=== PATIENT | male | born 1980 | race Caucasian/White ===

== ENCOUNTER 2021-05-25 10:39 | Emergency (ER) | payer OTHER ==
[2021-05-25 10:43] VITALS: BP 143/67; PULSE 64; RESP 18; TEMP 98.3
[2021-05-25] MEDS ORDERED: BACITRACIN OINT 1 EACH PACKET TOPICAL ONE (11:00)
[2021-05-25] MEDS ORDERED: LIDOCAINE 1% INJ 10MG/ML (20 ML MDV) SQ ONE (11:00)
--- NOTE | 2021-05-25 11:52 | ED ---
Wound/Laceration HPI - General Chief Complaint: Wound/Laceration Stated Complaint: hand lac Time Seen by Provider: 05/25/21 10:46 Source: patient Mode of arrival: ambulatory Limitations: no limitations - History of Present Illness Initial Comments: Patient is a 40-year-old male presenting to emergency Department with complaints of laceration to his left hand. Patient states about an hour prior to arrival, was getting out of the shower, and his hand accidentally hit the side of his doorknob which is broken. He has a laceration on the dorsal aspect of his left hand over the third MCP joint. He is not on blood thinners, his tetanus vaccine is up-to-date. Bleeding is controlled with a bandage at this time. He has no further complaints. - Related Data Allergies Allergy/AdvReac Type Severity Reaction Status Date / Time Penicillins Allergy Rash/Hives Verified 05/25/21 10:43 Review of Systems ROS Statement: Those systems with pertinent positive or pertinent negative responses have been documented in the HPI. ROS Other: All systems not noted in ROS Statement are negative. Past Medical History Past Medical History: No Reported History History of Any Multi-Drug Resistant Organisms: None Reported Past Surgical History: Orthopedic Surgery Past Psychological History: No Psychological Hx Reported Smoking Status: Never smoker Past Alcohol Use History: Occasional Past Drug Use History: None Reported General Exam - General Exam Comments Initial Comments: GENERAL: Patient is well-developed and well-nourished. Patient is nontoxic and in no acute distress. HEAD: Atraumatic, normocephalic. EYES: Pupils equal round and reactive to light, extraocular movements intact, sclera anicteric, conjunctiva are normal. Eyelids were unremarkable. LUNGS: Unlabored respirations. Breath sounds clear to auscultation bilaterally and equal. No wheezes rales or rhonchi. HEART: Regular rate and rhythm without murmurs, rubs or gallops. MUSCULOSKELETAL: Does have partial extension of the third finger however with resistance , it is painful and decreased strength as a compared to his other fingers. No clubbing or cyanosis. NEUROLOGICAL: Patient is alert and oriented x 3. SKIN: Warm, Dry, normal turgor, no rashes. Patient has a 1 cm laceration dorsal aspect of left hand near the third MCP joint. Leading is controlled. Limitations: no limitations Course Vital Signs 05/25/21 10:40 Temperature 98.3 F Pulse Rate 64 Respiratory 18 Rate Blood Pressure 143/67 O2 Sat by Pulse 99 Oximetry Procedures - Laceration Laceration #1 Consent Obtained: verbal consent Indication: laceration Site: hand (dorsal side, near 3rd MCP joint) Size (cm): 1 Description: linear Depth: simple, single layer Anesthetic Used: lidocaine 1% Anesthesia Technique: local infiltration Amount (mls): 3 Pre-repair: irrigated extensively Type of Sutures: nylon Size of Sutures: 5-0 Number of Sutures: 3 Technique: simple, interrupted Patient Tolerated Procedure: well - Orthopedic Splinting/Casting Injury #1 Side: left Upper Extremity Injury Location: finger Upper Extremity Immobilizer: aluminum form splint Medical Decision Making - Medical Decision Making Patient is a 40-year-old male here with a 1 cm laceration over his third MCP joint. His tetanus vaccine is up-to-date, bleeding is controlled. His wounds cleaned, closed with 3, 5-0 sutures. He tolerated procedure well. Patient does have decreased extension and strength in that third digit, I did splint him and will follow up with orthopedics. He is agreeable as planned care and is stable for discharge. Case discussed with Dr. Casey. Disposition Clinical Impression: Laceration of left middle finger with tendon involvement Disposition: HOME SELF-CARE Condition: Stable Instructions (If sedation given, give patient instructions): Care For Your Stitches (ED) Additional Instructions: Please return to the Emergency Department if symptoms worsen or any other concerns. Stitches need to be removed in 7-10 days. Keep area clean and dry. Please follow up with orthopedics as discussed. Keep splint in place until your follow-up. Is patient prescribed a controlled substance at d/c from ED?: No Referrals: Jose Huntley DO [Primary Care Provider] - 1-2 days Justin Beasley DO [Doctor of Osteopathic Medicine] - 1-2 days Time of Disposition: 11:51
== END 2021-05-25 12:13 | disposition home or self-care (01) ==
LOC: EC 10:39
DX: S61.213A Laceration without foreign body of left middle finger without damage to nail, initial encounter (principal); Z88.0 Allergy status to penicillin; W26.8XXA Contact with other sharp object(s), not elsewhere classified, initial encounter; Y92.009 Unspecified place in unspecified non-institutional (private) residence as the place of occurrence of the external cause
CPT/HCPCS: 12041; 99282